=== PATIENT | female | born 1975 | race Caucasian/White ===

== ENCOUNTER → 2020-08-09 | Outpatient (CLI) | payer BC ==
[~2020-08-09] MED LIST: ACYC-57 PO; BUPR150T73 PO; BUPR300T94 PO; BUSP5TAB2 PO; CHOL10003 PO; DOCU-193 PO; ESTR1TAB15 PO; OMEP-110 PO; PROG100C16 PO; TIZA4CAP PO; TRAZ50TA66 PO; VALA500T4 PO
[2020-08-09 14:30] LABS: BASOPHILS % (AUTO) 1 % (0-1); EOSINOPHILS % (AUTO) 2 % (1-7); LYMPHOCYTES % (AUTO) 42 % (22-44); MEAN CORPUSCULAR HGB CONC 33.4 g/dL (32.4-35.8); MEAN PLATELET VOLUME 9.5 fL (7.4-10.4); MONOCYTES % (AUTO) 6 % (2-9); NEUTROPHILS % (AUTO) 49 % (42-75); PLATELET COUNT 285 x10^3/uL (130-400); RED BLOOD COUNT 5.11 x10^6/uL (3.82-5.3); RED CELL DISTRIBUTION WIDTH 13.5 % (9.6-15.2)
[2020-08-09 14:35] LABS: MICROSCOPIC INDICATED
[2020-08-09 14:37] LABS: ALANINE AMINOTRANSFERASE 23 U/L (12-78); ALBUMIN 3.8 g/dL (3.4-5.0); ANION GAP 3 mmol/L (5-15); CHLORIDE 109 mmol/L (98-107); CREATININE 0.95 mg/dL (0.55-1.02)
[2020-08-09 14:38] LABS: MD NO
[2020-08-09 14:41] LABS: ALKALINE PHOSPHATASE 68 U/L (45-117); BILIRUBIN,TOTAL 0.4 mg/dL (0.2-1.0); TOTAL PROTEIN 7.2 g/dL (6.4-8.2)
== END | disposition home or self-care (01) ==
LOC: STAR 13:26
PROVIDERS: ATTEND Obstetrics & Gynecology
DX: Z01.812 Encounter for preprocedural laboratory examination (principal); Z20.822 Contact with and (suspected) exposure to COVID-19; N80.0 Endometriosis of uterus; R10.2 Pelvic and perineal pain; N94.6 Dysmenorrhea, unspecified
CPT/HCPCS: 36415; 80053; 81001; 84702; 85025; 87086; U0003

== ENCOUNTER 2020-08-14 05:29 | Day surgery (SDC) | payer BC ==
[~2020-08-14] VITALS: Ht 162.6 cm; Wt 87.3 kg
[2020-08-14 06:26] VITALS: BP 151/85
[2020-08-14] MEDS ORDERED: ACETAMINOPHEN 500 MG TABLET PO ONE ×2 (06:30→07:30)
[2020-08-14] MEDS ORDERED: LACTATED RINGERS 1,000 ML IV SCH (06:30)
[2020-08-14] MEDS ORDERED: CHLORHEXIDINE 15 ML UDC PO ONE (06:30)
[2020-08-14 06:32] LABS: HCG UR SG 1.022 (1.003-1.030)
[2020-08-14] MEDS ORDERED: EPINEPHRINE 1 MG/ML, 1ML ONE (06:48)
[2020-08-14] MEDS ORDERED: BUPIVACAINE/PF 0.25% ONE (06:48)
[2020-08-14] MEDS ORDERED: FENTANYL PF 250 MCG/5ML ONE (07:04)
[2020-08-14] MEDS ORDERED: MIDAZOLAM 1 MG/ML, 2ML ONE (07:04)
[2020-08-14] MEDS ORDERED: BUPIVACAINE/PF 0.5% ONE (07:20)
[2020-08-14] MEDS ORDERED: SCOPOLAMINE 1MG PATCH TD ONE (07:24)
[2020-08-14] MEDS ORDERED: PROPOFOL 50 ML ONE ×2 (07:26→08:35)
[2020-08-14] MEDS ORDERED: EPHEDRINE 50 MG/ML, 1ML IVPush PRN (07:30)
[2020-08-14] MEDS ORDERED: HYDROmorphone 1 MG/ML, 1ML INJ IVPush PRN (07:30)
[2020-08-14] MEDS ORDERED: ONDANSETRON 2MG/ML, 2ML IVPush PRN (07:30)
[2020-08-14] MEDS ORDERED: METHOCARBAMOL 1,000 MG in DEXTROSE 5% 100 ML IV PRN (07:30)
[2020-08-14] MEDS ORDERED: HALOPERIDOL 5 MG/ML IV PRN (07:30)
[2020-08-14] MEDS ORDERED: SCOPOLAMINE 1MG PATCH TD SCH (07:30)
[2020-08-14] MEDS ORDERED: LABETALOL 5MG/ML, 20ML IV PRN (07:30)
[2020-08-14] MEDS ORDERED: MEPERIDINE/PF 25MG/0.5ML IVPush PRN (07:30)
[2020-08-14] MEDS ORDERED: PROMETHAZINE 25 MG/ML, 1ML IVPush PRN (07:30)
[2020-08-14] MEDS ORDERED: ACETAMINOPHEN 325 MG TABLET PO PRN (07:30)
[2020-08-14] MEDS ORDERED: LORazepam 2 MG/ML, 1ML IVPush PRN (07:30)
[2020-08-14] MEDS ORDERED: OXYcodone 5 MG/5 ML ORAL.SOL UDC PO PRN (07:30)
[2020-08-14] MEDS ORDERED: hydrALAzine 20 MG/ML, 1ML IV PRN (07:30)
[2020-08-14] MEDS ORDERED: ONDANSETRON 2MG/ML, 2ML ONE (07:50)
[2020-08-14] MEDS ORDERED: NEOSTIGMINE 1 MG/ML, 10ML ONE (07:50)
[2020-08-14] MEDS ORDERED: GLYCOPYRROLATE 0.2MG/1ML, 5ML ONE (07:50)
[2020-08-14] MEDS ORDERED: METOCLOPRAMIDE 5 MG/ML, 2ML ONE (07:50)
[2020-08-14] MEDS ORDERED: KETOROLAC 30 MG/1 ML ONE (07:50)
[2020-08-14] MEDS ORDERED: DEXAMETHASONE 4 MG/ML, 1ML ONE (07:50)
[2020-08-14] MEDS ORDERED: PROPOFOL 10 MG/ML, 20ML ONE (07:50)
[2020-08-14] MEDS ORDERED: CEFAZOLIN 1,000 MG ONE (07:50)
[2020-08-14] MEDS ORDERED: SUCCINYLCHOLINE 20 MG/ML, 10ML ONE (07:50)
[2020-08-14] MEDS ORDERED: ROCURONIUM 10 MG/ML,10ML ONE (07:50)
[2020-08-14] MEDS ORDERED: FENTANYL PF 100 MCG/2ML ONE ×2 (09:20→09:58)
[2020-08-14] MEDS ORDERED: OXYcodone 5 MG/5 ML ORAL.SOL UDC ONE (09:58)
[2020-08-14] MEDS: FENTANYL PF 100 MCG/2ML IV PRN ×2 (10:01→10:28)
[2020-08-14] MEDS ORDERED: MEPERIDINE/PF 25MG/ML,1ML ONE (10:33)
[2020-08-14] MEDS ORDERED: ACETAMINOPHEN 325 MG TABLET ONE (13:15)
== END 2020-08-14 14:10 | disposition home or self-care (01) ==
LOC: OR 05:29 → OUT 14:10
PROVIDERS: ATTEND Obstetrics & Gynecology
DX: N94.6 Dysmenorrhea, unspecified (principal); D25.9 Leiomyoma of uterus, unspecified; N80.0 Endometriosis of uterus; N73.6 Female pelvic peritoneal adhesions (postinfective); N72 Inflammatory disease of cervix uteri; N87.9 Dysplasia of cervix uteri, unspecified; N88.8 Other specified noninflammatory disorders of cervix uteri; Z87.891 Personal history of nicotine dependence; Z98.51 Tubal ligation status; Z82.49 Family history of ischemic heart disease and other diseases of the circulatory system; Z83.42 Family history of familial hypercholesterolemia
CPT/HCPCS: 36415; 58552; 81025; 86850; 86900; 88307; J0171; J0330; J0690; J1100; J1885; J2175; J2250; J2405; J2704; J2710; J2765; J2800; J3010; J7120